=== PATIENT | female | born 1955 | race Caucasian/White ===

== ENCOUNTER → 2016-05-23 | Outpatient (CLI) | payer BC ==
[~2016-05-23] MED LIST: ASPI1TAB83 PO; B-COTAB18 PO; CALC500C70 PO; MAGN250T8 PO; ROSU5TAB PO
--- NOTE | 2016-05-23 11:43 | DIAGNOSTIC IMAGING REPORT ---
LEFT FOOT MIN 3 VIEWS CLINICAL HISTORY: Lateral left foot pain status post fall. COMPARISON: Left foot radiographs September 05, 2012. FINDINGS: There are comminuted, displaced fractures through the mid to distal shafts of the left fourth and fifth metatarsals. Each fracture is displaced 7 mm. Alignment of the tarsometatarsal joints is anatomic. There is hallux valgus deformity. This mild arthritis of the left first metatarsophalangeal joint. IMPRESSION: Comminuted, moderately displaced fractures of the mid to distal shafts of the left fourth and fifth metatarsals. Electronically signed by: Takn Thomas M.D. 05/23/2016 11:41 AM Dictated Date/Time: 05/23/2016 11:37 AM
== END | disposition home or self-care (01) ==
LOC: C.RDSM 14:24
PROVIDERS: ATTEND Physical Medicine & Rehabilitation Sports Medicine
DX: S92.352A Displaced fracture of fifth metatarsal bone, left foot, initial encounter for closed fracture (principal); S92.342A Displaced fracture of fourth metatarsal bone, left foot, initial encounter for closed fracture; X58.XXXA Exposure to other specified factors, initial encounter

== ENCOUNTER → 2016-05-30 | Outpatient (CLI) | payer BC ==
--- NOTE | 2016-05-30 13:26 | DIAGNOSTIC IMAGING REPORT ---
LEFT FOOT MIN 3 VIEWS CLINICAL HISTORY: Left foot pain. Healing fractures. COMPARISON: Left foot radiographs May 23, 2016. FINDINGS: The tarsometatarsal joints are intact. There are comminuted, moderately displaced fractures of the mid to distal shafts of the left fourth and fifth metatarsals. The appearance is unchanged exam of May 23, 2016. There is no significant callus formation. Alignment is unchanged. Mild hallux valgus deformity is noted. IMPRESSION: No change in alignment of the comminuted, displaced fractures of the left fourth and fifth metatarsals. Electronically signed by: Tank Thomas M.D. 05/30/2016 1:24 PM Dictated Date/Time: 05/30/2016 1:21 PM
== END | disposition home or self-care (01) ==
LOC: C.RDSM 15:16
PROVIDERS: ATTEND Physical Medicine & Rehabilitation Sports Medicine
DX: S92.352A Displaced fracture of fifth metatarsal bone, left foot, initial encounter for closed fracture (principal); S92.342A Displaced fracture of fourth metatarsal bone, left foot, initial encounter for closed fracture; X58.XXXA Exposure to other specified factors, initial encounter

== ENCOUNTER → 2016-06-14 | Outpatient (CLI) | payer BC ==
--- NOTE | 2016-06-14 15:06 | DIAGNOSTIC IMAGING REPORT ---
LEFT FOOT MIN 3 VIEWS CLINICAL HISTORY: Left foot pain, fractures. COMPARISON: 05/20/2016 DISCUSSION: There is a hallux valgus deformity. There is a comminuted displaced angulated fracture of the fourth metatarsal, unchanged in alignment. There is a comminuted minimally displaced fracture of the fifth metatarsal, also unchanged in alignment. No definite callus formation is visualized. IMPRESSION: No change in the alignment of the comminuted displaced and angulated fracture of the fourth metatarsal. No change in the alignment of the minimally displaced comminuted fracture the fifth metatarsal. Electronically signed by: Aaron Rodriguez M.D. 06/14/2016 3:05 PM Dictated Date/Time: 06/14/2016 3:03 PM
== END | disposition home or self-care (01) ==
LOC: C.RDSM 13:09
PROVIDERS: ATTEND Physical Medicine & Rehabilitation Sports Medicine
DX: R52 Pain, unspecified (principal)

== ENCOUNTER → 2016-06-29 | Outpatient (CLI) | payer BC | END | disposition home or self-care (01) | LOC: C.RDSM 15:15 | PROVIDERS: ATTEND Physical Medicine & Rehabilitation Sports Medicine | DX: S92.342D Displaced fracture of fourth metatarsal bone, left foot, subsequent encounter for fracture with routine healing (principal); X58.XXXD Exposure to other specified factors, subsequent encounter ==

== ENCOUNTER → 2016-08-05 | Outpatient (CLI) | payer BC | END | disposition home or self-care (01) | LOC: C.RDSM 11:17 | PROVIDERS: ATTEND Physical Medicine & Rehabilitation Sports Medicine | DX: S92.342D Displaced fracture of fourth metatarsal bone, left foot, subsequent encounter for fracture with routine healing (principal); X58.XXXD Exposure to other specified factors, subsequent encounter ==

== ENCOUNTER → 2016-08-19 | Outpatient (CLI) | payer BC ==
[~2016-08-19] MED LIST changes: +OPTIRAY 320 IV PRN
--- NOTE | 2016-08-19 09:52 | DIAGNOSTIC IMAGING REPORT ---
CT OF THE SINUSES WITH CONTRAST CT DOSE: 595.00 mGy.cm CLINICAL HISTORY: Chronic sinusitis. Factor V. TECHNIQUE: Axial images of the sinuses were obtained following intravenous injection of 91 cc of Optiray 320 IV. Sagittal and coronal reconstructions were viewed COMPARISON STUDY: None. FINDINGS: Visualized portions of the intracranial contents are unremarkable. The mastoid air cells are clear. There is no fluid within the middle ears and the ossicles are intact. There is moderate rightward deviation of the nasal septum with spur formation. There are raffy bullosa of the bilateral middle turbinates, left larger than right. The sinuses are clear. Major drainage pathways are patent. There is no bony destruction. No mass is identified within the sinuses or the nasal cavity. Orbits are unremarkable. IMPRESSION: 1. Clear sinuses. No evidence for acute sinusitis. Patent major drainage pathways. 2. Moderate rightward deviation of the nasal septum with spur formation. Electronically signed by: Tank Thomas M.D. 08/19/2016 9:51 AM Dictated Date/Time: 08/19/2016 9:41 AM
== END | disposition home or self-care (01) ==
LOC: C.CTS 09:09
PROVIDERS: ATTEND Family Medicine
DX: J32.9 Chronic sinusitis, unspecified (principal); R09.82 Postnasal drip

== ENCOUNTER → 2016-09-07 | Outpatient (CLI) | payer BC ==
[~2016-09-07] MED LIST changes: -OPTIRAY 320 IV PRN
== END | disposition home or self-care (01) ==
LOC: C.PAPS 15:24
PROVIDERS: ATTEND Obstetrics & Gynecology
DX: Z01.419 Encounter for gynecological examination (general) (routine) without abnormal findings (principal)

== ENCOUNTER → 2016-09-14 | Outpatient (CLI) | payer BC | END | disposition home or self-care (01) | LOC: C.RDSM 13:54 | PROVIDERS: ATTEND Physical Medicine & Rehabilitation Sports Medicine | DX: S92.342D Displaced fracture of fourth metatarsal bone, left foot, subsequent encounter for fracture with routine healing (principal); X58.XXXD Exposure to other specified factors, subsequent encounter ==

== ENCOUNTER → 2016-09-23 | Outpatient (CLI) | payer BC ==
--- NOTE | 2016-09-23 16:41 | MAMMOGRAPHY REPORT ---
BILATERAL DIGITAL SCREENING MAMMOGRAM WITH CAD: 09/23/2016 CLINICAL HISTORY: Routine screening. Patient has no complaints. TECHNIQUE: Current study was also evaluated with a Computer Aided Detection (CAD) system. Bilatera l CC and MLO views were obtained. COMPARISON: Comparison is made to exams dated: 09/23/2015 mammogram, 08/28/2014 mammogram, 08/27/2013 mammogram, 08/30/2012 mammogram, 08/29/2011 mammogram, and 08/20/2010 mammogram - [facility] [address] BREAST COMPOSITION: There are scattered areas of fibroglandular density in both breasts. FINDINGS: No suspicious masses, calcifications, or areas of architectural distortion are noted in e ither breast. There has been no significant interval change compared to prior exams. Bilateral mason gn appearing calcifications are not significantly changed. A linear scar marker denotes a scar on t he left upper outer breast. IMPRESSION: ACR BI-RADS CATEGORY 2: BENIGN There is no mammographic evidence of malignancy. A 1 year screening mammogram is recommended. The p atient will receive written notification of the results. Approximately 10% of breast cancers are not detected with mammography. A negative mammographic repor t should not delay biopsy if a clinically suggestive mass is present. Madison Song M.D. ah/:09/23/2016 15:55:17 Freight Flow Sales Leader: Emma ROB(Minor)(Daria)(BD), [facility] [address] letter sent: Normal 1/2 BI-RADS Code: ACR BI-RADS Category 2: Benign
== END | disposition home or self-care (01) ==
LOC: C.MAMM 14:26
PROVIDERS: ATTEND Obstetrics & Gynecology
DX: Z12.31 Encounter for screening mammogram for malignant neoplasm of breast (principal)

== ENCOUNTER → 2017-07-28 | Outpatient (CLI) | payer BC ==
[2017-07-28 10:30] LABS: BASO % 0.2 %; BASO ABS # 0.01 K/uL (0-0.2); EOS % 1.1 %; EOS ABS # 0.06 K/uL (0-0.5); HEMATOCRIT 40.7 % (37-47); HEMOGLOBIN 13.9 g/dL (12.0-16.0); IG# 0.01 K/uL (0.00-0.02); LYMPH % 34.9 %; LYMPH ABS # 1.82 K/uL (1.2-3.4); MEAN CELL VOLUME 90.4 fL (80-100); MEAN CORPUSCULAR HEMOGLOBIN 30.9 pg (25-34); MEAN CORPUSCULAR HGB CONC 34.2 g/dl (32-36); MEAN PLATELET VOLUME 10.3 fL (7.4-10.4); MONO % 6.7 %; MONO ABS # 0.35 K/uL (0.11-0.59); NEUT % 56.9 %; NEUT ABS # 2.97 K/uL (1.4-6.5); PLATELET COUNT 184 K/uL (130-400); RED CELL DISTRIBUTION WIDTH CV 12.7 % (11.5-14.5); RED CELL DISTRIBUTION WIDTH SD 41.7 fL (36.4-46.3); WHITE BLOOD COUNT 5.22 K/uL (4.8-10.8)
[2017-07-28 12:25] LABS: ALBUMIN 3.6 gm/dl (3.4-5.0); ALT/SGPT 19 U/L (12-78); BLOOD UREA NITROGEN 7 mg/dl (7-18); CALCIUM 9.3 mg/dl (8.5-10.1); CARBON DIOXIDE 28 mmol/L (21-32); CHOLESTEROL 214 mg/dl (0-200); CREATININE 0.77 mg/dl (0.60-1.20); GLUCOSE 82 mg/dl (70-99); POTASSIUM 3.7 mmol/L (3.5-5.1); SODIUM 139 mmol/L (136-145)
[2017-07-28 12:36] LABS: ALKALINE PHOSPHATASE 58 U/L (45-117); AST/SGOT 15 U/L (15-37); LDL CHOLESTEROL CALCULATED 128 mg/dl; TOTAL PROTEIN 6.8 gm/dl (6.4-8.2)
== END | disposition home or self-care (01) ==
LOC: C.LAB1850 09:41
PROVIDERS: ATTEND Internal Medicine
DX: E78.00 Pure hypercholesterolemia, unspecified (principal); E55.9 Vitamin D deficiency, unspecified; I35.1 Nonrheumatic aortic (valve) insufficiency

== ENCOUNTER → 2017-09-20 | Outpatient (CLI) | payer BC | END | disposition home or self-care (01) | LOC: C.PAPS 16:12 | PROVIDERS: ATTEND Obstetrics & Gynecology | DX: Z01.419 Encounter for gynecological examination (general) (routine) without abnormal findings (principal) ==

== ENCOUNTER → 2017-10-05 | Outpatient (CLI) | payer BC ==
--- NOTE | 2017-10-06 15:18 | MAMMOGRAPHY REPORT ---
BILATERAL DIGITAL SCREENING MAMMOGRAM TOMOSYNTHESIS WITH CAD: 10/05/2017 CLINICAL HISTORY: Routine screening. Patient has no complaints. TECHNIQUE: Breast tomosynthesis in addition to standard 2D mammography was performed. Current study was also evaluated with a Computer Aided Detection (CAD) system. COMPARISON: Comparison is made to exams dated: 09/23/2016 mammogram, 09/23/2015 mammogram, 08/28/2014 m ammogram, 08/27/2013 mammogram, 08/30/2012 mammogram, and 08/29/2011 mammogram - [facility]. BREAST COMPOSITION: There are scattered areas of fibroglandular density in both breasts. FINDINGS: No suspicious masses, calcifications, or areas of architectural distortion are noted in ei ther breast. There has been no significant interval change compared to prior exams. Bilateral benign appearing calcifications are not significantly changed. A linear scar marker denotes a scar on the left upper outer breast. IMPRESSION: ACR BI-RADS CATEGORY 2: BENIGN There is no mammographic evidence of malignancy. A 1 year screening mammogram is recommended. The pa tient will receive written notification of the results. Approximately 10% of breast cancers are not detected with mammography. A negative mammographic report should not delay biopsy if a clinically suggestive mass is present. Madison Song M.D. /:10/05/2017 14:36:55 Manager Research Development: Lor MCKEON)(), [facility] letter sent: Normal 1/2 BI-RADS Code: ACR BI-RADS Category 2: Benign
== END | disposition home or self-care (01) ==
LOC: C.MAMM 13:43
PROVIDERS: ATTEND Obstetrics & Gynecology
DX: Z12.31 Encounter for screening mammogram for malignant neoplasm of breast (principal)